=== PATIENT | female | born 1945 | race Caucasian/White ===

== ENCOUNTER 2019-02-16 13:55 | Outpatient (REF) | payer MEDICARE, BC, SELFPAY ==
[2019-02-16 20:05] LABS: HCT 38.6 % (36.0-46.0); HGB 12.5 g/dL (12.0-15.5); Mean Corp. HGB Concentration 32.4 g/dL (32.0-36.0); Mean Corpuscular Hemoglobin 29.3 pg (27.0-33.0); Mean Corpuscular Volume 90.6 fL (80-95); Platelet Count 232 x1000/uL (130-400); RBC 4.26 m/cumm (4.00-5.20); White Blood Cell Count 5.83 k/cumm (4.4-10.8)
[2019-02-16 20:29] LABS: ALT 19 U/L (12-78); AST 14 U/L (15-37); Albumin 3.7 g/dL (3.4-5.0); Alkaline Phosphatase 71 U/L (46-116); Anion Gap 7.1 mmol/L (3-11); BUN 24 mg/dL (7-18); Bilirubin, Total 0.8 mg/dL (0.2-1.0); CO2 29.9 mmol/L (21.0-32.0); CREATININE 0.88 mg/dL (0.55-1.02); Calcium 9.2 mg/dL (8.5-10.1); Chloride 102 mmol/L (98-107); Glucose 97 mg/dL (70-100); Potassium 4.8 mmol/L (3.5-5.1); Sodium 139 mmol/L (136-145); TSH 1.47 uIU/mL (0.358-3.74); Total Protein 6.7 g/dL (6.4-8.2)
== END 2019-02-16 14:15 ==
LOC: NCHCN 13:55
PROVIDERS: PCP Physician Assistant Medical; Visit Provider Physician Assistant Medical
DX: E03.9 Hypothyroidism, unspecified (principal); E78.5 Hyperlipidemia, unspecified; R42 Dizziness and giddiness
CPT/HCPCS: 80053; 85027; 84443

== ENCOUNTER 2019-07-09 13:13 | Outpatient (REF) | payer MEDICARE, BC, SELFPAY | END 2019-07-09 13:33 | LOC: NCHCN 13:13 | PROVIDERS: PCP Physician Assistant Medical; Visit Provider Internal Medicine | DX: J02.9 Acute pharyngitis, unspecified (principal); E11.9 Type 2 diabetes mellitus without complications; J44.9 Chronic obstructive pulmonary disease, unspecified | CPT/HCPCS: 87070 ==

== ENCOUNTER 2019-08-06 08:27 | Outpatient (REF) | payer MEDICARE, BC, SELFPAY ==
[2019-08-06 19:25] LABS: Hemoglobin A1C 6.3 % (4.5-6.2)
[2019-08-06 19:31] LABS: Anion Gap 7.3 mmol/L (3-11); BUN 21 mg/dL (7-18); CO2 30.7 mmol/L (21.0-32.0); CREATININE 1.14 mg/dL (0.55-1.02); Calcium 8.7 mg/dL (8.5-10.1); Calculated LDL 191 mg/dL; Chloride 105 mmol/L (98-107); Cholesterol 275 mg/dL (50-200); Estimated GFR 46.85 (mL/min/1.73m2); Glucose 122 mg/dL (70-100); HDL Cholesterol 46 mg/dL (40-60); Potassium 4.5 mmol/L (3.5-5.1); Sodium 143 mmol/L (136-145); TSH (W/Ref FT4) 12.95 uIU/mL (0.36-3.74); Triglyceride 190 mg/dL (30-150)
[2019-08-06 19:48] LABS: FREE T4 0.97 ng/dL (0.76-1.46)
== END 2019-08-06 08:47 ==
LOC: NCHCN 08:27
PROVIDERS: PCP Physician Assistant Medical; Visit Provider Nurse Practitioner Family
DX: E03.9 Hypothyroidism, unspecified (principal); E78.5 Hyperlipidemia, unspecified; E11.9 Type 2 diabetes mellitus without complications
CPT/HCPCS: 80048; 80061; 83036; 84439; 84443

== ENCOUNTER 2021-06-14 14:47 | Outpatient (REF) | payer MEDICARE, BC, SELFPAY ==
[2021-06-14 20:20] LABS: Abs Immature Grans 0.02 10^3/uL (0.0-0.06); Absolute Basophil Count 0.05 10^3/uL (0.0-0.2); Absolute Eosinophil Count 0.16 10^3/uL (0.0-0.7); Absolute Lymphocyte Count 2.35 10^3/uL (1.2-3.4); Absolute Monocyte Count 0.44 10^3/uL (0.1-0.8); Absolute Neutrophil Count 3.57 10^3/uL (1.2-6.7); Basophils % 0.8; Eosinophils % 2.4; HCT 40.6 % (36.0-46.0); HGB 12.7 g/dL (11.2-15.7); Immature Grans % 0.3; Lymphocytes % 35.7; MCH 27.5 pg (27.0-33.0); MCHC 31.3 % (32.0-36.0); MCV 88.1 fL (80-95); MPV 10.7 fL (8.0-11.0); Monocytes % 6.7; Neutrophils % 54.1; Nucleated RBC 0 %; Platelet Count 224 10^3/uL (130-400); RBC 4.61 10^6/uL (3.93-5.22); RDW 14.6 % (11.7-14.6); WBC 6.59 10^3/uL (4.4-10.8)
[2021-06-14 20:33] LABS: ALT 20 U/L (14-59); AST 14 U/L (15-37); Albumin 3.7 g/dL (3.4-5.0); Alkaline Phosphatase 122 U/L (46-116); BUN 21 mg/dL (7-18); Bilirubin, Total 0.5 mg/dL (0.2-1.0); CREATININE 0.9 mg/dL (0.55-1.02); Calculated LDL 57 mg/dL (<100); Chloride 106 mmol/L (98-107); Cholesterol 159 mg/dL (<200); Glucose 103 mg/dL (74-106); HDL Cholesterol 54 mg/dL (40-60); Potassium 4.4 mmol/L (3.5-5.1); Sodium 144 mmol/L (136-145); TSH (W/Ref FT4) 0.04 uIU/mL (0.36-3.74); Total Protein 6.4 g/dL (6.4-8.2); Triglyceride 240 mg/dL (<150)
[2021-06-14 20:44] LABS: COMMENT (LAB VIEW ONLY) 304.71 mg/dL; Microalb ug/mg Crea 4.3 ug/mg Cr
[2021-06-14 20:58] LABS: FREE T4 1.81 ng/dL (0.76-1.46)
== END 2021-06-14 14:48 | disposition home or self-care (01) ==
LOC: NCHCN 14:47
PROVIDERS: PCP Physician Assistant Medical; Visit Provider Nurse Practitioner Family
DX: E11.9 Type 2 diabetes mellitus without complications (principal); E78.5 Hyperlipidemia, unspecified; E03.9 Hypothyroidism, unspecified; K21.9 Gastro-esophageal reflux disease without esophagitis
CPT/HCPCS: 80053; 80061; 82043; 82570; 84439; 84443; 85025

== ENCOUNTER 2021-06-21 14:38 | Outpatient (REF) | payer MEDICARE, BC, SELFPAY ==
[2021-06-23 09:29] LABS: COVID-19 RT-PCR UVMMC Result Negative (Negative)
== END 2021-06-21 14:39 | disposition home or self-care (01) ==
LOC: NCHCN 14:38
PROVIDERS: PCP Physician Assistant Medical; Visit Provider Physician Assistant
DX: Z20.822 Contact with and (suspected) exposure to COVID-19 (principal); J06.9 Acute upper respiratory infection, unspecified
CPT/HCPCS: U0003; U0005

== ENCOUNTER 2022-05-21 17:42 | Outpatient (REF) | payer MEDICARE, BC, SELFPAY ==
[2022-05-21 19:50] LABS: ALT 18 U/L (14-59); AST 18 U/L (15-37); Albumin 3.7 g/dL (3.4-5.0); Alkaline Phosphatase 96 U/L (46-116); Anion Gap 7.4 mmol/L (3-11); BUN 18 mg/dL (7-18); Bilirubin, Total 0.7 mg/dL (0.2-1.0); CO2 27.6 mmol/L (21.0-32.0); CREATININE 1.1 mg/dL (0.55-1.02); Calculated LDL 53 mg/dL (<100); Chloride 105 mmol/L (98-107); Cholesterol 140 mg/dL (<200); Estimated GFR 48.42 (mL/min/1.73m2); Glucose 90 mg/dL (74-106); HDL Cholesterol 62 mg/dL (40-60); Potassium 4.1 mmol/L (3.5-5.1); Sodium 140 mmol/L (136-145); TSH (W/Ref FT4) 0.75 uIU/mL (0.36-3.74); Total Protein 6.7 g/dL (6.4-8.2); Triglyceride 126 mg/dL (<150)
== END 2022-05-21 17:43 | disposition home or self-care (01) ==
LOC: NCHCN 17:42
PROVIDERS: PCP Physician Assistant Medical; Visit Provider Nurse Practitioner Family
DX: E03.9 Hypothyroidism, unspecified (principal); E11.9 Type 2 diabetes mellitus without complications
CPT/HCPCS: 80053; 80061; 84443

== ENCOUNTER 2023-04-18 13:52 | Outpatient (REF) | payer MEDICARE, BC, SELFPAY ==
[2023-04-18 19:33] LABS: Anion Gap 7.2 mmol/L (3-11); BUN 20 mg/dL (7-18); CO2 29.8 mmol/L (21.0-32.0); Chloride 106 mmol/L (98-107); Estimated GFR 58.39 (mL/min/1.73m2); Glucose 124 mg/dL (74-106); Potassium 4.2 mmol/L (3.5-5.1); Sodium 143 mmol/L (136-145); TSH (W/Ref FT4) 0.73 uIU/mL (0.36-3.74)
[2023-04-18 20:01] LABS: GGT 17 U/L (5-55)
[2023-04-19 20:12] LABS: Parathyroid Hormone,Intact 68 pg/mL (19-88)
[2023-04-24 10:35] LABS: 25-Hydroxy D Total 56 ng/mL; 25-Hydroxy D2 <4.0 ng/mL; 25-Hydroxy D3 56 ng/mL
== END 2023-04-18 13:53 | disposition home or self-care (01) ==
LOC: NCHCN 13:52
PROVIDERS: PCP Physician Assistant Medical; Visit Provider Nurse Practitioner Family
DX: E11.9 Type 2 diabetes mellitus without complications (principal); R74.8 Abnormal levels of other serum enzymes; E03.9 Hypothyroidism, unspecified
CPT/HCPCS: 80048; 82306; 82977; 83970; 84443

== ENCOUNTER 2024-03-25 12:17 | Outpatient (REF) | payer MEDICARE, BC, SELFPAY ==
[2024-03-25 20:34] LABS: Anion Gap 8.6 mmol/L (3-11); BUN 17 mg/dL (7-18); Bilirubin Negative (Negative); Blood Negative (Negative); CO2 29.4 mmol/L (21.0-32.0); CREATININE 0.8 mg/dL (0.55-1.02); Calcium 9.6 mg/dL (8.5-10.1); Chloride 105 mmol/L (98-107); Clarity Sl Cloudy (Clear); Estimated GFR 75.84 (mL/min/1.73m2); Glucose 102 mg/dL (74-106); Glucose Negative (Negative); Ketones Negative (Negative); Leukocyte Esterase Small (Negative); Nitrite Negative (Negative); Potassium 4.2 mmol/L (3.5-5.1); Sodium 143 mmol/L (136-145); Specific Gravity >= 1.030 (1.005-1.025); TSH 0.03 uIU/Ml (0.36-3.74); Urobilinogen 0.2 mg/dL (Up to 0.2)
[2024-03-25 20:38] LABS: Hemoglobin A1C 5.8 % (<5.7)
[2024-03-25 21:05] LABS: Bacteria Rare HPF (Negative); C & S Indicated? No/Sq. Contamination; Casts Negative LPF (Negative); Crystals Negative HPF (Negative); Epithelial Cells Moderate HPF (Negative); Mucus Negative (Negative); RBC Negative HPF (0-2); WBC >50 HPF (0-5)
== END 2024-03-25 12:18 | disposition home or self-care (01) ==
LOC: NCHCN 12:17
PROVIDERS: PCP Physician Assistant Medical; Visit Provider Nurse Practitioner Family
DX: E11.9 Type 2 diabetes mellitus without complications (principal)
CPT/HCPCS: 80048; 81003; 81015; 83036; 84443

== ENCOUNTER 2024-04-27 20:21 | Outpatient (REF) | payer MEDICARE, BC, SELFPAY ==
[2024-04-27 20:38] LABS: Bilirubin Negative (Negative); Blood Negative (Negative); Clarity Sl Cloudy (Clear); Glucose Negative (Negative); Ketones Negative (Negative); Leukocyte Esterase Small (Negative); Nitrite Negative (Negative); Urobilinogen 0.2 mg/dL (Up to 0.2); pH 5.5 (5-8)
[2024-04-27 21:08] LABS: Bacteria Negative HPF (Negative); C & S Indicated? No/Sq. Contamination; Crystals Negative HPF (Negative); Epithelial Cells Many HPF (Negative); Mucus Trace (Negative); RBC Negative HPF (0-2); WBC >50 HPF (0-5)
== END 2024-04-27 20:22 | disposition home or self-care (01) ==
LOC: NCHCN 20:21
PROVIDERS: PCP Physician Assistant Medical; Visit Provider Nurse Practitioner Family
DX: N39.0 Urinary tract infection, site not specified (principal)
CPT/HCPCS: 81003; 81015

== ENCOUNTER 2024-05-06 12:03 | Outpatient (REF) | payer MEDICARE, BC, SELFPAY ==
[2024-05-06 20:58] LABS: Bilirubin Negative (Negative); Blood Negative (Negative); Clarity Cloudy (Clear); Glucose Negative (Negative); Ketones Negative (Negative); Leukocyte Esterase Moderate (Negative); Nitrite Negative (Negative); Urobilinogen 0.2 mg/dL (Up to 0.2); pH 5.5 (5-8)
[2024-05-06 21:11] LABS: C & S Indicated? Yes; WBC >50 HPF (0-5)
== END 2024-05-06 12:04 | disposition home or self-care (01) ==
LOC: NCHCN 12:03
PROVIDERS: PCP Physician Assistant Medical; Visit Provider Nurse Practitioner Family
DX: R30.0 Dysuria (principal)
CPT/HCPCS: 87077; 81003; 81015; 87086; 87186

== ENCOUNTER 2024-05-14 13:01 | Outpatient (REF) | payer MEDICARE, BC, SELFPAY | END 2024-05-14 13:02 | disposition home or self-care (01) | LOC: NCHCN 13:01 | PROVIDERS: PCP Physician Assistant Medical; Visit Provider Nurse Practitioner Family | DX: N76.0 Acute vaginitis (principal); N39.0 Urinary tract infection, site not specified | CPT/HCPCS: 87480; 87510; 87660 ==

== ENCOUNTER 2024-06-29 13:59 | Outpatient (REF) | payer MEDICARE, BC, SELFPAY ==
[2024-06-29 20:32] LABS: ALT 16 U/L (14-59); AST 19 U/L (15-37); Albumin 3.9 g/dL (3.4-5.0); Alkaline Phosphatase 88 U/L (46-116); Bilirubin, Direct 0.2 mg/dL (0.0-0.2); Bilirubin, Total 0.77 mg/dL (0.2-1.0); TSH 2.91 uIU/Ml (0.36-3.74); Total Protein 7.3 g/dL (6.4-8.2)
== END 2024-06-29 14:00 | disposition home or self-care (01) ==
LOC: NCHCN 13:59
PROVIDERS: PCP Physician Assistant Medical; Visit Provider Nurse Practitioner Family
DX: E03.9 Hypothyroidism, unspecified (principal); E78.5 Hyperlipidemia, unspecified
CPT/HCPCS: 80076; 84443